=== PATIENT | female | born 2000 | race American Indian/Alaskan Native ===

== ENCOUNTER 2021-05-03 15:17 | Emergency (ER) | payer SELFPAY ==
[2021-05-03 15:25] VITALS: BP 100/64
--- NOTE | 2021-05-03 17:28 | XRay Report ---
CHEST 2 VIEWS INDICATION / CLINICAL INFORMATION: chest pain STUDY TIME: 171 COMPARISON: None available. FINDINGS: SUPPORT DEVICES: None. HEART / MEDIASTINUM: No significant abnormality. LUNGS / PLEURA: No significant acute pulmonary or pleural abnormality. No pneumothorax. ADDITIONAL FINDINGS: Thoracolumbar scoliosis is noted. Signer Name: Ankit Aragon MD Signed: 05/03/2021 5:24 PM Workstation Name: [id number]
[2021-05-03] MEDS ORDERED: ACETAMINOPHEN 500 MG TAB PO STA (17:36)
[2021-05-03] MEDS ORDERED: IBUPROFEN 800 MG TAB PO STA (17:36)
--- NOTE | 2021-05-03 17:41 | Emergency Department Report ---
ED General Adult HPI - General Chief complaint: Chest Pain Stated complaint: CHEST DISCOMFORT Time Seen by Provider: 05/03/21 16:56 Source: patient Mode of arrival: Ambulatory Limitations: No Limitations - History of Present Illness Initial comments: 20-year-old -[place] female patient presents with complaints of substernal chest pain and tightness x2 days. Patient states her symptoms began after she had a panic attack. She denies any trauma to her chest wall, difficulty breathing, cough, hemoptysis, or fever/chills/sweats. No history of heart disease or family history of heart disease per patient. She also denies any history of DVT/PE/cancer, recent long travel, leg pain/swelling, or hormone use. Patient rates her pain as a 5/10 in severity. She has not tried any OTC medications for symptoms. Past medical history includes gastritis, however patient states this pain is different from her gastritis flares. - Related Data Previous Rx's Medication Instructions Recorded Last Taken Type Naproxen 500 mg PO BID PRN #20 tablet 05/03/21 Unknown Rx methocarbamoL [Methocarbamol] 500 - 1,000 mg PO TID PRN #20 05/03/21 Unknown Rx tablet Allergies Allergy/AdvReac Type Severity Reaction Status Date / Time No Known Allergies Allergy Unverified 05/03/21 15:23 ED Review of Systems ROS: Stated complaint: CHEST DISCOMFORT Other details as noted in HPI ED Past Medical Hx - Past Medical History Previous Medical History?: No - Surgical History Past Surgical History?: No - Medications Home Medications: Home Medications Medication Instructions Recorded Confirmed Last Taken Type Naproxen 500 mg PO BID PRN #20 tablet 05/03/21 Unknown Rx methocarbamoL [Methocarbamol] 500 - 1,000 mg PO TID PRN #20 05/03/21 Unknown Rx tablet ED Physical Exam - General Limitations: No Limitations ED Course Vital Signs 05/03/21 15:23 Temperature 98.9 F Pulse Rate 80 Respiratory 16 Rate Blood Pressure 100/64 [Left] O2 Sat by Pulse 100 Oximetry ED Medical Decision Making - Radiology Data Radiology results: report reviewed - Medical Decision Making 20-year-old -[place] female patient presents with complaints of substernal chest pain and tightness x2 days. Patient states her symptoms began after she had a panic attack. She denies any trauma to her chest wall, difficulty breathing, cough, hemoptysis, or fever/chills/sweats. No history of heart disease or family history of heart disease per patient. She also denies any history of DVT/PE/cancer, recent long travel, leg pain/swelling, or hormone use. Patient rates her pain as a 5/10 in severity. She has not tried any OTC medications for symptoms. Past medical history includes gastritis, however patient states this pain is different from her gastritis flares. Chest x-ray is normal. EKG shows normal sinus rhythm. Heart score = 0. PERC score = 0. On exam, patient has tenderness to palpation over the left parasternal area overlying the costochondral cartilage. Patient given Tylenol and ibuprofen. She states her symptoms have improved. Presentation appears to be consistent with costochondritis. Will treat with NSAIDs, muscle relaxers, and icing of the chest. Recommend follow-up with PCP and 3 to 5 days. She is well-appearing, her vitals are normal, she is stable for discharge home. Discussed presumptive diagnosis, care plan, and signs and symptoms that should prompt immediate return to the ED with patient verbalizes understanding. Critical care attestation.: If time is entered above; I have spent that time in minutes in the direct care of this critically ill patient, excluding procedure time. ED Disposition Clinical Impression: Other chest pain, Costochondritis, acute Disposition: 01 HOME / SELF CARE / HOMELESS Is pt being admited?: No Condition: Stable Instructions: Nonspecific Chest Pain, Adult, [id number], Costochondritis Prescriptions: methocarbamoL [Methocarbamol] 500 - 1,000 mg PO TID PRN #20 tablet PRN Reason: muscle tightness Naproxen 500 mg PO BID PRN #20 tablet PRN Reason: pain Referrals: [facility] [Provider Group] - 3-5 Days Heart Score - HEART Score History: Slightly suspicious EKG: Normal Age: < 45 Risk factors: No known risk factors Troponin: < normal limit HEART Score: 0 - EKG Read Time Time EKG Completed: 17:10 EKG Read Time: 17:15
--- NOTE | 2021-05-04 12:20 | Electrocardiograph Report ---
[facility] Test Date: 2021-05-03 Test Time: 17:15:34 Pat Name: HAYDEN CAIN Department: Room: Gender: F [employer]: : 2000 Requested By: ROLF VELAZQUEZ Order Number: [id number] Reading MD: Martni Johnson Measurements Intervals [place] Rate: 67 P: 27 OK: 118 QRS: 60 QRSD: 79 T: 45 QT: 371 QTc: 392 Interpretive Statements Sinus rhythm No previous ECG available for comparison Electronically Signed On 05-04-2021 12:20:27 EDT by Martin Johnson
== END 2021-05-03 18:29 | disposition home or self-care (01) ==
LOC: ED 15:17
DX: M94.0 Chondrocostal junction syndrome [Tietze] (principal)
CPT/HCPCS: 71046; 93005; 99283

== ENCOUNTER 2021-06-26 15:14 | Emergency (ER) | payer SELFPAY ==
[2021-06-26 15:46] VITALS: BP 109/70
--- NOTE | 2021-06-26 16:30 | Emergency Department Report ---
ED Abdominal Pain HPI - General Chief Complaint: Skin/Abscess/Foreign Body Stated Complaint: FEEL LIKE SOMETHING STUCK IN THROAT, SOB Time Seen by Provider: 06/26/21 16:21 Source: patient Mode of arrival: Ambulatory Limitations: No Limitations - History of Present Illness Initial Comments: Patient is a 20-year-old F [place] female who states for the last several weeks she has had sensation that food is not digesting well. States that when she eats solid food she feels like something is getting stuck. States occasionally she has some nausea as well. Patient states she often times does have some epigastric discomfort. Symptoms are worse after eating and at night when she is lying flat. Denies cough cold congestion fevers or chills. Patient does have a remote history of gastritis but has not seen a GI doctor has never had an EGD Severity scale (0 -10): 7 - Related Data Previous Rx's Medication Instructions Recorded Last Taken Type Naproxen 500 mg PO BID PRN #20 tablet 05/03/21 Unknown Rx methocarbamoL [Methocarbamol] 500 - 1,000 mg PO TID PRN #20 05/03/21 Unknown Rx tablet Famotidine [Pepcid] 20 mg PO BID #14 tablet 06/26/21 Unknown Rx Ondansetron [Zofran Odt] 4 mg PO Q8HR #10 tab.rapdis 06/26/21 Unknown Rx Pantoprazole [Protonix] 40 mg PO QDAY #30 tablet 06/26/21 Unknown Rx Allergies Allergy/AdvReac Type Severity Reaction Status Date / Time promethazine [From Phenergan] AdvReac Unknown Verified 06/26/21 15:46 ED Review of Systems ROS: Stated complaint: FEEL LIKE SOMETHING STUCK IN THROAT, SOB Other details as noted in HPI Comment: All other systems reviewed and negative ED Past Medical Hx - Medications Home Medications: Home Medications Medication Instructions Recorded Confirmed Last Taken Type Naproxen 500 mg PO BID PRN #20 tablet 05/03/21 Unknown Rx methocarbamoL [Methocarbamol] 500 - 1,000 mg PO TID PRN #20 05/03/21 Unknown Rx tablet Famotidine [Pepcid] 20 mg PO BID #14 tablet 06/26/21 Unknown Rx Ondansetron [Zofran Odt] 4 mg PO Q8HR #10 tab.rapdis 06/26/21 Unknown Rx Pantoprazole [Protonix] 40 mg PO QDAY #30 tablet 06/26/21 Unknown Rx ED Physical Exam - General Limitations: No Limitations General appearance: alert, in no apparent distress - Head Head exam: Present: atraumatic, normocephalic - Eye Eye exam: Present: normal appearance - ENT ENT exam: Present: mucous membranes moist - Neck Neck exam: Present: normal inspection - Respiratory Respiratory exam: Present: normal lung sounds bilaterally. Absent: respiratory distress, wheezes, rales, rhonchi - Cardiovascular Cardiovascular Exam: Present: regular rate, normal rhythm, normal heart sounds. Absent: systolic murmur, diastolic murmur, rubs, gallop - GI/Abdominal GI/Abdominal exam: Present: soft, normal bowel sounds. Absent: distended, tenderness, guarding, rebound, rigid - Extremities Exam Extremities exam: Present: normal inspection - Back Exam Back exam: Present: normal inspection - Neurological Exam Neurological exam: Present: alert, oriented X3 - Psychiatric Psychiatric exam: Present: normal affect, normal mood - Skin Skin exam: Present: warm, dry, intact, normal color. Absent: rash ED Course Vital Signs 06/26/21 15:44 Temperature 98.3 F Pulse Rate 65 Respiratory 16 Rate Blood Pressure 109/70 [Left] O2 Sat by Pulse 100 Oximetry ED Medical Decision Making - Medical Decision Making Patient to be started on Protonix and given follow-up with GI if symptoms do not improve with the medications given Critical care attestation.: If time is entered above; I have spent that time in minutes in the direct care of this critically ill patient, excluding procedure time. ED Disposition Clinical Impression: GERD (gastroesophageal reflux disease) Disposition: HOME / SELF CARE / HOMELESS Is pt being admited?: No Does the pt Need Aspirin: No Condition: Stable Instructions: Food Choices for Gastroesophageal Reflux Disease, Adult, Gastroesophageal Reflux Disease, Adult, [id number] Referrals: [facility] [Provider Group] - 3-5 Days Time of Disposition: 16:29
== END 2021-06-26 16:56 | disposition home or self-care (01) ==
LOC: ED 15:14
DX: K21.9 Gastro-esophageal reflux disease without esophagitis (principal)
CPT/HCPCS: 99282

== ENCOUNTER 2022-03-26 14:13 | Emergency (ER) | payer SELFPAY ==
[2022-03-26 14:43] VITALS: BP 120/58
[2022-03-26 22:03] LABS: Color,Urine Yellow (Yellow); HCG Qualitative,Urine Negative (Negative)
[2022-03-26 22:05] LABS: Bacteria,Urine 1+ /HPF (Negative); Mucus,Urine FEW /HPF
[2022-03-26 23:22] LABS: Hematocrit 33.1 % (30.3-42.9); Hemoglobin 10.5 gm/dl (10.1-14.3); Mean Corpuscular HGB Conc 32 % (30-34); Mean Corpuscular Volume 79 fl (79-97); Platelet Count 277 K/mm3 (140-440); Red Cell Distribution Width 15.8 % (13.2-15.2)
[2022-03-26 23:38] LABS: Alanine Aminotransferase 9 units/L (7-56); Albumin 4.5 g/dL (3.9-5); Blood Urea Nitrogen 11 mg/dL (7-17); Calcium 9.5 mg/dL (8.4-10.2); Hemolysis Index 6
[2022-03-26 23:53] LABS: BUN/Creatinine Ratio 16
--- NOTE | 2022-03-27 00:04 | Emergency Department Report ---
ED General Adult HPI - General Chief complaint: Nausea/Vomiting/Diarrhea Stated complaint: WEAKNESS/VOMITTING Time Seen by Provider: 03/26/22 21:14 Source: patient Mode of arrival: Ambulatory Limitations: No Limitations - History of Present Illness Initial comments: 21-year-old abdomen female history department complaining of having some issues with her wisdom tooth resulting in pain with dull throbbing nature she was trying to take Tylenol and ibuprofen for her discomfort and then began having upset stomach associated with a couple of vomiting episodes. She reports no fever, chills, sweats. No hemoptysis no hematemesis hematochezia. Ports no c hest pain or palpitations. -: Gradual Radiation: non-radiation Quality: dull Consistency: constant Improves with: none Worsens with: none Associated Symptoms: denies other symptoms - Related Data Previous Rx's Medication Instructions Recorded Last Taken Type Naproxen 500 mg PO BID PRN #20 tablet 05/03/21 Unknown Rx methocarbamoL [Methocarbamol] 500 - 1,000 mg PO TID PRN #20 05/03/21 Unknown Rx tablet Famotidine [Pepcid] 20 mg PO BID #14 tablet 06/26/21 Unknown Rx Ondansetron [Zofran Odt] 4 mg PO Q8HR #10 tab.rapdis 06/26/21 Unknown Rx Pantoprazole [Protonix] 40 mg PO QDAY #30 tablet 06/26/21 Unknown Rx Amoxicillin [Amoxicillin TAB] 875 mg PO BID #20 tablet 03/26/22 Unknown Rx Chlorhexidine Gluconate [Hibiclens] 10 ml TP BID #240 liquid 03/26/22 Unknown Rx Lidocaine Viscous 2% 5 ml MM Q3H PRN #120 udc 03/26/22 Unknown Rx traMADoL [Ultram] 50 mg PO Q6HR PRN #20 tablet 03/26/22 Unknown Rx Allergies Allergy/AdvReac Type Severity Reaction Status Date / Time promethazine [From Phenergan] AdvReac Unknown Verified 03/26/22 14:44 ED Review of Systems ROS: Stated complaint: WEAKNESS/VOMITTING Other details as noted in HPI Comment: All other systems reviewed and negative ED Past Medical Hx - Medications Home Medications: Home Medications Medication Instructions Recorded Confirmed Last Taken Type Naproxen 500 mg PO BID PRN #20 tablet 05/03/21 Unknown Rx methocarbamoL [Methocarbamol] 500 - 1,000 mg PO TID PRN #20 05/03/21 Unknown Rx tablet Famotidine [Pepcid] 20 mg PO BID #14 tablet 06/26/21 Unknown Rx Ondansetron [Zofran Odt] 4 mg PO Q8HR #10 tab.rapdis 06/26/21 Unknown Rx Pantoprazole [Protonix] 40 mg PO QDAY #30 tablet 06/26/21 Unknown Rx Amoxicillin [Amoxicillin TAB] 875 mg PO BID #20 tablet 03/26/22 Unknown Rx Chlorhexidine Gluconate [Hibiclens] 10 ml TP BID #240 liquid 03/26/22 Unknown Rx Lidocaine Viscous 2% 5 ml MM Q3H PRN #120 udc 03/26/22 Unknown Rx traMADoL [Ultram] 50 mg PO Q6HR PRN #20 tablet 03/26/22 Unknown Rx ED Physical Exam - General Limitations: No Limitations General appearance: alert, in no apparent distress - Head Head exam: Present: atraumatic, normocephalic - Eye Eye exam: Present: normal appearance, PERRL, EOMI Pupils: Present: normal accommodation - ENT ENT exam: Present: normal exam, normal orophraynx, mucous membranes moist, TM's normal bilaterally, other (Dental caries noted to the right upper molar region with caries noted) - Neck Neck exam: Present: normal inspection, full ROM - Respiratory Respiratory exam: Present: normal lung sounds bilaterally. Absent: respiratory distress, rales, rhonchi - Cardiovascular Cardiovascular Exam: Present: regular rate, normal rhythm. Absent: systolic murmur, diastolic murmur, rubs, gallop - GI/Abdominal GI/Abdominal exam: Present: soft, tenderness (Left upper quadrant region with nausea associated), normal bowel sounds. Absent: guarding, rebound - Extremities Exam Extremities exam: Present: normal inspection - Back Exam Back exam: Present: normal inspection - Neurological Exam Neurological exam: Present: alert, oriented X3 - Psychiatric Psychiatric exam: Present: normal affect, normal mood - Skin Skin exam: Present: warm, dry, intact, normal color. Absent: rash ED Course Vital Signs 03/26/22 14:42 Temperature 98.4 F Pulse Rate 100 H Respiratory 18 Rate Blood Pressure 120/58 [Left] O2 Sat by Pulse 96 Oximetry ED Medical Decision Making - Lab Data Result diagrams: 03/26/22 22:52 03/26/22 22:52 Critical care attestation.: If time is entered above; I have spent that time in minutes in the direct care of this critically ill patient, excluding procedure time. ED Disposition Clinical Impression: Infected dental caries, Gastritis Disposition: 01 HOME / SELF CARE / HOMELESS Is pt being admited?: No Does the pt Need Aspirin: No Condition: Stable Instructions: Gastritis, Adult, Oxem-it-Wiwi, Dental Extraction, [id number]-[id number], Preventive Dental Care, Adult Additional Instructions: Please refrain from using excessive motion or Tylenol products. Please keep current appointment with your dentist. Prescriptions: Amoxicillin [Amoxicillin TAB] 875 mg PO BID #20 tablet Chlorhexidine Gluconate [Hibiclens] 10 ml TP BID #240 liquid Lidocaine Viscous 2% 5 ml MM Q3H PRN #120 udc PRN Reason: Pain, Moderate (4-6) traMADoL [Ultram] 50 mg PO Q6HR PRN #20 tablet PRN Reason: Pain Referrals: [facility] [Outside] - 3-5 Days
== END 2022-03-27 00:20 | disposition home or self-care (01) ==
LOC: ED 14:13
DX: K02.9 Dental caries, unspecified (principal); K29.70 Gastritis, unspecified, without bleeding; Z88.8 Allergy status to other drugs, medicaments and biological substances
CPT/HCPCS: 36415; 80053; 81001; 81025; 83690; 85027; 99283